=== PATIENT | female | born 1965 ===

== ENCOUNTER 2017-06-04 11:36 | Emergency (ER) | payer BC ==
[2017-06-04] MEDS ORDERED: IBUPROFEN 600 MG TAB PO ONE (12:01)
[2017-06-04] MEDS ORDERED: ACETAMINOPHEN 500 MG TAB PO ONE (12:01)
--- NOTE | 2017-06-04 12:49 | EDPHY ---
H & P Stated Complaint: fever, n/v/d - Personal History LMP (Females 10-55): 22-28 Days Ago Current Tetanus/Diphtheria Vaccine: No Current Tetanus Diphtheria and Acellular Pertussis (TDAP): No - Medical/Surgical History Hx Asthma: Yes Hx Chronic Respiratory Disease: No Hx Diabetes: No Hx Cardiac Disease: No Hx Renal Disease: No Hx Cirrhosis: No Hx Alcoholism: No Hx HIV/AIDS: No Hx Splenectomy or Spleen Trauma: No Other PMH: L foot surgery 2017, vlad, - Social History Smoking Status: Never smoked Time Seen by Provider: 06/04/17 12:30 HPI/ROS: CHIEF COMPLAINT: Flu-like symptoms x 6 days HISTORY OF PRESENT ILLNESS: 52-year-old immunocompetent female with up-to-date influenza vaccination complaining 6 days of flu-like symptoms myalgias, fever, headache, sore throat, nonproductive cough. No abdominal pain. No nausea or vomiting. No rash. REVIEW OF SYSTEMS: A ten point review of systems was performed and is negative with the exception of the items mentioned in the HPI PAST MEDICAL & SURGICAL HISTORY: Restless legs syndrome SOCIAL HISTORY:Nonsmoker PHYSICAL EXAM (Prior to examination, patient consented to physical exam, hands were washed and my usual and customary physical exam procedures followed) 1) GENERAL: Well-developed, well-nourished, alert and oriented. Appears nontoxic 2) HEAD: Normocephalic, atraumatic 3) HEENT: Pupils equal, round, reactive to light bilaterally. Sclera anicteric. Nasopharynx, oropharynx, clear, no lesions posterior or pharyngeal erythema with no tonsillar enlargement or exudate. Ears bilaterally with normal tympanic membranes. 4) NECK: Full range of motion, no meningeal signs. 5) LUNGS: Clear auscultation bilaterally, no wheezes, no rhonchi, no retractions. 6) HEART: Regular rate and rhythm, no murmur, no heave, no gallop. 7) ABDOMEN: No guarding, no rebound, no focal tenderness, negative McBurney's, negative Gregory's, negative Rovsing's, negative peritoneal sign, 8) MUSCULOSKELETAL: Moving all extremities, no focal areas of tenderness, no obvious trauma. No peripheral edema or discoloration. 9) BACK: No CVA tenderness, no midline vertebral tenderness, no fluctuance, no step-off, no obvious trauma, no visual or palpable abnormality. 10) SKIN: No rash, no petechiae. 11) Psychiatric: Patient is oriented X 3, there is no agitation. DIFFERENTIAL DIAGNOSIS: In no particular include but limited to influenza like illness, bronchitis, pneumonia, meningitis (Matt,Xiomara Apryl) Constitutional: Initial Vital Signs Temperature (C) 39.1 C H 06/04/17 11:47 Heart Rate 107 H 06/04/17 11:47 Respiratory Rate 14 06/04/17 11:47 Blood Pressure 110/86 H 06/04/17 11:47 O2 Sat (%) 98 06/04/17 11:47 O2 Delivery Mode Room Air Allergies/Adverse Reactions: codeine Allergy (Verified 06/04/17 11:45) Home Medications: Medication Instructions Recorded AZITHROMYCIN [Z-PACK] 500 mg PO DAILY #1 packet 06/04/17 CHOLESTYRAMINE POWDER 06/04/17 FLUoxetine 06/04/17 Ketoprofen 06/04/17 buPROPion 06/04/17 Medical Decision Making ED Course/Re-evaluation: The patient was evaluated and managed by the physician's assistant strength coach. My cosignature indicates that I reviewed the chart and I agree with the findings and plan of care as documented. I am the secondary supervising physician. ( Ro Houston) 1:59 p.m.: Re-evaluation, she has defervesce, notes that her myalgias have been moderated after ibuprofen and acetaminophen. She is to continues to complain of nonprogressive headache. No nuchal rigidity. I think that meningitis is less than likely. I do not think that the benefits of lumbar puncture outweigh the risks nonetheless has been discussed with patient she is in agreement. We also discussed possible other sources such as urinary tract infection and she adamantly feels that this is not secondary to cystitis or pyelonephritis that she has history of similar and has no urinary complaints. We discussed her negative influenza testing. Symptoms have been present for 1 week. Discussed possible secondary bacterial infection on top of what was more than likely initial viral etiology. Plan will be discharged with azithromycin. I do not think that chest x-ray indicated in the presence of clear lungs, maintain normal saturations. I do not think that other diagnostic studies are definitively indicated at this time. I had a lengthy discussion with the patient has been they feel comfortable with this plan. Usual and customary discharge precautions and return precautions provided. (Xiomara Gutierrez) - Data Points Laboratory Results: 06/04/17 12:10 Nasal Influenza A PCR NEGATIVE FOR FLU A (NEGATIVE) Nasal Influenza B PCR NEGATIVE FOR FLU B (NEGATIVE) Medications Given: Discontinued Medications Acetaminophen (Tylenol) 1,000 mg PO EDNOW ONE Stop: 06/04/17 12:02 Last Admin: 06/04/17 12:04 Dose: 1,000 mg Ibuprofen (Motrin) 600 mg PO EDNOW ONE Stop: 06/04/17 12:02 Last Admin: 06/04/17 12:04 Dose: 600 mg Departure - Departure Disposition: Home, Routine, Self-Care Clinical Impression: Influenza-like illness Condition: Good Instructions: Upper Respiratory Infection (ED) Additional Instructions: Return to the emergency department immediately for change in breathing habits, change in voice, change in swallowing habits, change in mental status, or any other symptoms that concern you. Adult Pain & Fever Control: We recommend Acetaminophen (Tylenol) and Ibuprofen (Motrin,Advil) for pain and fever control. When fever is high or pain severe, both drugs can be used at the same time, but at different intervals. Please note the time differences. Your dose is: Acetaminophen 1000mg every 4 to 6 hours Ibuprofen 800mg every 6 hours with food OR Note: do not take Acetaminophen with Hydrocodone (Vicodin, Lortab) or Oycodone (Percocet). These medications also contain Acetaminophen. No more than 3000mg of Acetaminophen should be taken in 24 hours (for an adult). Referrals: Nando Pinto MD [Medical Doctor] - 1-2 days without fail Prescriptions: AZITHROMYCIN [Z-PACK] 500 mg PO DAILY #1 packet
[2017-06-04 14:24] VITALS: BP 118/71; PULSE 78; RESP 16; TEMP 99.3; O2SAT 97
== END 2017-06-04 14:00 | disposition home or self-care (01) ==
DX: J11.1 Influenza due to unidentified influenza virus with other respiratory manifestations (principal); J45.909 Unspecified asthma, uncomplicated

== ENCOUNTER → 2017-08-14 | Outpatient (CLI) | payer BC | LOC: FCPNEURO 20:30 | PROVIDERS: ATTEND Student in an Organized Health Care Education/Training Program | DX: G47.33 Obstructive sleep apnea (adult) (pediatric) (principal) ==